=== PATIENT | female | born 1980 | race Two or more races ===

== ENCOUNTER 2022-07-23 11:47 | Emergency (ER) | payer OTHER ==
[~2022-07-23] VITALS: Ht 167.6 cm; Wt 98.0 kg
== END 2022-07-23 19:08 | disposition home or self-care (01) ==
LOC: ER 11:47
DX: K52.9 Noninfective gastroenteritis and colitis, unspecified (principal)

== ENCOUNTER 2022-09-12 21:34 | Emergency (ER) | payer OTHER ==
[~2022-09-12] VITALS: Ht 167.6 cm; Wt 103.0 kg
[2022-09-12] MEDS ORDERED: SYNTHROID125 MCG PO (21:53)
[2022-09-13] MEDS ORDERED: CEPHALEXIN500 MG PO (00:21)
[2022-09-13] MEDS ORDERED: KETO10TA2 PO (00:21)
== END 2022-09-13 00:26 ==
LOC: ER 21:34
DX: N30.80 Other cystitis without hematuria (principal); R10.2 Pelvic and perineal pain; D25.9 Leiomyoma of uterus, unspecified; E03.8 Other specified hypothyroidism

== ENCOUNTER 2025-01-30 10:43 | Emergency (ER) | payer OTHER ==
[~2025-01-30] VITALS: Ht 165.1 cm; Wt 103.9 kg
[~2025-01-30 10:43] MED LIST: CEPHALEXIN500 MG PO; KETO10TA2 PO; SYNTHROID125 MCG PO
[2025-01-30] MEDS ORDERED: KETOROLAC TROMETHAMINE 30 MG VIAL IM STA (11:55)
[2025-01-30] MEDS ORDERED: KETOROLAC TROMETHAMINE 30 MG VIAL ONE (12:10)
[2025-01-30 12:19] LABS: BASO % 1.1 % (0.1-1.2); EOS # 0.32 (0.04-0.54); EOS % 6.8 % (0.7-7.0); LYMPH # 1.63 (1.18-3.74); LYMPH % 34.4 % (19.3-53.1); MEAN PLATELET VOLUME 10.50 fl (9.4-12.4); MONO # 0.51 (0.24-0.82); MONO % 10.8 % (4.7-12.5); NEUT # 2.22 (1.56-6.13); NEUT % 46.7 % (34.0-71.1); RED CELL DISTRIBUTION WIDTH 12.2 % (11.6-14.4)
[2025-01-30 12:46] LABS: ALT/SGPT 20.0 U/L (12-78); AST/SGOT 15.0 U/L (15-37); BILIRUBIN TOTAL 0.69 mg/dL (0.3-1.2); BUN CREA RATIO 13.0 (7.0-25.0); CREATININE SERUM 0.75 mg/dL (0.55-1.02); GFR 83.56; GLOBULINA 3.8 G/DL (2.4-3.5); GLUCOSE FASTING 89.0 mg/dL (65-100); OSMOLALITY SERUM 287.0 MOSM/KG (275-295)
[2025-01-30 12:53] LABS: COVID-19 AG NEGATIVE (NEGATIVE)
== END 2025-01-30 13:24 | disposition home or self-care (01) ==
LOC: ER 10:43
PROVIDERS: General Practice
DX: R07.9 Chest pain, unspecified (principal); Z20.822 Contact with and (suspected) exposure to COVID-19